=== PATIENT | female | born 1940 | race Caucasian/White ===

== ENCOUNTER 2022-01-12 15:23 | Observation (INO) | payer SELFPAY, OTHER ==
[2022-01-12] VITALS (15 sets, daily range): BP systolic 83–166; BP diastolic 41–93; PULSE 68–110; RESP 14–20; TEMP 35.7–36.3; O2SAT 91–99; BMI 37.8; BMI 38.4
[2022-01-12] MEDS: Lactated Ringers 1,000 ML 15 ML IV (09:13)
[2022-01-12 09:21] LABS: Bedside Glucose 153 mg/dL (74-106)
--- NOTE | 2022-01-12 09:50 | RAD_ITS ---
PROCEDURE: Spinal cord stimulator insertion. DATE OF EXAMINATION: 01/12/2022. INDICATION: Female, 81 years old. Chronic back pain. FLUOROSCOPY TIME (if supplied): (3 minutes and 48 seconds) minutes/seconds. 7 images were obtained. RAD/Lumbar Spine 2 or 3 Views IMPRESSION: Intraoperative images provided for spinal cord stimulator insertion. The tip appears to be at the T8 level. Electronically Signed: Jaisel Muñiz MD at 14:04 EDT ,
[2022-01-12] MEDS: Cefazolin 2 GM in 0.9% Normal Saline 100 ML IV (10:36)
[2022-01-12] MEDS: 0.9% Normal Saline (Pres. free 10 ML Vial (10:48)
[2022-01-12] MEDS: Lidocaine 2% (20 ml mdv) 20 ML Vial (10:48)
[2022-01-12] MEDS: Bacitracin 500 UNITS/GM PACKET (12:20)
[2022-01-12 12:46] LABS: Bedside Glucose 120 mg/dL (74-106)
--- NOTE | 2022-01-12 13:05 | OP.PCM_ITS ---
Report of Operation Date of Procedure: 01/12/22 Description of Surgical Findings:: Pre-Operative Diagnosis: Lumbosacral radiculopathy, lumbosacral degenerative disc disease, lumbosacral spinal stenosis Post-Operative Diagnosis: Lumbosacral radiculopathy, lumbosacral degenerative disc disease, lumbosacral spinal stenosis Surgery/Procedure Performed:: 1. Spinal cord stimulator thoracolumbar leads placement x2, 2- spinal cord stimulator Medtronic intellus generator placement #3 spinal cord stimulator generator pocket creation at the left gluteal region #4 spinal cord stimulator simple programming, 5-intraoperative fluoroscopic interpretation ANESTHESIA: MAC COMPLICATIONS: None BLOOD LOSS: <50 ml Implanted device: Spinal cord stimulator lead [id number] lot number [id number], lead #2 [id number] lot number [id number] Medtronic spinal cord stimulator generator intellus serial number [id number] PROCEDURE IN DETAIL: History and physical today was reviewed. Risks and benefits of procedure explained. The patient understood, agreed to procedure, informed consent was obtained. IV inserted per routine protocol. The patient was taken to the operating room, placed in the prone position with a pillow positioned underneath the abdomen. A 2 g of Ancef IV piggyback was infused per anesthesia. The lower back and left gluteal area was prepped and draped in a sterile fashion using iodine x3 Ioban was placed. The C-arm was brought in position for AP view at the L2-3 vertebral bodies under direct visualization fluoroscopy on a true AP view the L2-3 interlaminar space was identified skin and subcutaneous tissue and size approximately 10 cc of a mix of 2% lidocaine and 0.25% Marcaine using a 25-gauge regular needle followed by a 25-gauge 3-1/2 inch spinal needle towards the interlaminar space at L1-2, the skin and subcutaneous tissue were then anesthetized and using an 11-gauge blade was then taken down to the skin and subcutaneous tissue using a 14-gauge 3-1/2 inch Touhy needle provided by the [employer]way kit the needle was passed through the skin towards the interlaminar space at L1-2 and a paramedian approach the needle was then advanced under direct visualization fluoroscopy towards the interlaminar space at L1-2 [id number] technique was then carried to air towards the interlaminar space at L1-2 once the tip of the needle was in the epidural space and loss of resistance was encountered to air and after confirmation of AP as well as oblique view of the spinal cord stimulator lead was then advanced under direct visualization fluoroscopy to be at the tip of the lead at T8 and the bottom of the lead around mid T10 after confirmation of AP as well as lateral view to confirm correct placement of the lead in the posterior compartment of the epidural space the previous procedure was then repeated to the left the previous lead at L1-2 interlaminar space the second lead was then inserted under direct visualization with fluoroscopy to be at the mid T8 and mid T10 area the leads were were then connected to the external neurostimulator and patient was then awakened to confirm satisfactory coverage of the painful area once satisfactory coverage was then achieved the stylette of each needle was then removed and the skin and subcutaneous tissue on to the left of the paramedian needles was then taken anesthetized with a total of 10 cc of the previous mixture of 0.25% Marcaine and 2% lidocaine using a 25-gauge regular needle the incision was then taken down through the skin and subcutaneous tissue towards the fascia making sure hemostasis was then maintained via cautery, the spinal cord stimulator leads were then passed through the above incision and secured using the biwing and sutured down with a 2-0 silk to the fascia at that level the spinal cord stimulator leads were then tunneled via a tunneler provided by the [employer] kit towards the previously incised spinal cord stimulator battery at the left gluteal region skin and subcutaneous tissue were anesthetized with approximately 10 cc of a mix of 2% lidocaine and 0.25% Marcaine using a 25 gauge regular needle, skin and subcutaneous tissue was then taken down with the 11- gauge blade hemostasis was maintained with Bovie and direct pressure the incision was then taken down to the fascia and the battery was then secured with the 2-0 silk sutures that were the spinal cord stimulator leads the upper lead was then marked the new until spinal cord stimulator battery was then provided Via [employer]way kit the battery was then reattached of the spinal cord stimulator make ensure that the left is attached to the top position from 0-7 electrodes and the bottom from 8-15 electrodes once impedance was then checked to be in the proper average number the intellus battery was then inserted into the pocket and impedance with when checked again the pocket was then inspected to confirm hemostasis in place, the intellus battery was then secured to the fascia using a 2-0 silk to the upper eyes of the battery confirming an upward writing of the intellus facing posterior, once complete confirmation the battery was then p laced in the position and the the mid paramedian and the gluteal incisions were then closed primarily through a 3-0 Vicryl in a running fashion followed by a 4- 0 Monocryl to the skin, hemostasis was then maintained during the procedure the skin was then covered with a Steri-Strips and bacitracin patient was then returned into the supine position in a stable condition and returned to recovery in a stable condition patient experienced no signs or symptoms of intrathecal or intravascular injection patient experienced no paresthesia the procedure was completed without any apparent difficulty any complication the patient appeared to tolerate well, motor as well as sensory function was unchanged from prior to the procedure ASSESSMENT AND PLAN: This is an 81-year-old female with lumbosacral radiculopathy lumbosacral degenerative disc disease lumbosacral spinal stenosis status post 1. Spinal cord stimulator thoracolumbar leads placement x2 #2 spinal cord stimulator Medtronic intellus generator placement #3 spinal cord stimulator generator pocket creation at the left gluteal region #4 spinal cord stimulator simple programming, 5-intraoperative fluoroscopic interpretation patient will continue her current medications a prescription was provided to the patient Keflex 500 mg 1 p.o. every 8 hours for 7 days, Percocet 5-325 mg half to 1 p.o. every 6 hours for acute postoperative pain, postop instruction were given in writing to the patient and her daughter and as well as verbally and in writing, patient will follow approximately 1 week for reevaluation.
[2022-01-12 13:35] LABS: Bedside Glucose 206 mg/dL (74-106)
--- NOTE | 2022-01-12 14:47 | SUR.PHASEII ---
PATIENT SATURATION 80% ON ROOM AIR.THIS NURSE NOTIFIED DR. CHOPRA AND DR. ESTRADA. WILL CONT TO MONITOR. PLACED ON 4L O2.
--- NOTE | 2022-01-12 15:02 | RAD_ITS ---
STUDY: X-RAY CHEST REASON FOR EXAM: Female, 81 years old. SATURATION 80% RA; CONCERN FOR PE; POST PROCEDURE TECHNIQUE: Single AP portable view of the chest. COMPARISON: None. FINDINGS: Spinal cord similar device is seen with tip at the T7 level. Increased interstitial markings suggestive of a mild degree of CHF superimposed on scarring. Focal atelectasis at the right lung base. Normal size heart. Normal mediastinum and lata. Normal visualized pulmonary arteries. There is atherosclerotic calcification of the aortic arch with tortuosity. Normal visualized thoracic spine. There is degenerative osteoarthritis of the bilateral shoulders. There is no demonstrated abnormality of the visualized soft tissue structures of the upper abdomen. RAD/Chest 1 View (Portable) IMPRESSION: Findings suggestive of mild degree of CHF superimposed on chronic scarring. Electronically Signed: Jasiel Muñiz MD at 15:31 EDT ,
--- NOTE | 2022-01-12 15:20 | HP.PCM.HOS_ITS ---
HPI - General General Date of Admission: 01/12/22 Date of Service: 01/12/22 Chief Complaint: Hypoxia in PACU post-op HPI Narrative The patient is an 81 y/o F w/ PMHx: Chronic venous stasis disease, Chronic BL LE Lymphedema, Anxiety and Depression, Obesity, Chronic AF, Diabetes mellitus type II, HTN, HLD, Chronic back pain, Chronic CHF unclear type, RLS, Valvular Heart Disease s/p AVR who presents to the [facility] on 01/12/22 for planned spinal stimulator placement per Dr. Buck and following MAC anesthesia/procedure patient was noted to be hypoxia on room air attempts with improvement when she is awake but when she falls back asleep she is noted to become hypoxic. PACU evaluation included EKG w/ atrial fibrillation with no acute evidence of ischemia/rate controlled. Anesthesia noted lungs clear to ausculation but given history planne d lasix 20 mg IV x 1 with CXR pending. No labs were obtained. Family does note that patient does snore very loudly and gasps with likely underlying untreated ANABEL. They also note that she will frequently fall asleep in her chair during the day. In the PACU patient is aware and alert, 97% on 2 L nasal cannula. She does admit that she is very fatigued during the day routinely. She denies any recent increased swelling to her lower extremities and does have chronic lymphedema with chronic venous stasis skin changes. She denies any specific weight gain. Per discussion with PACU staff patient is eligible for resumption of her Eliquis in AM. REPLACED BY [facility] Medical History (Updated 01/12/22 @ 15:[address] Maryan Bennett MD) Anxiety Arthritis Back pain Chronic atrial fibrillation History of CHF (congestive heart failure) Hypertension Insulin dependent diabetes mellitus Non-smoker Obesity Restless legs Walker as ambulation aid Wears dentures Wears glasses Home Medications Barley Life 1 packet PO/SL DAILY 01/08/22 [History Last Taken Unknown] apixaban [Eliquis] 5 mg PO BID 01/08/22 [History Last Taken Unknown] ascorbic acid (vitamin C) [Vitamin C] 250 mg PO DAILY 01/08/22 [History Last Taken Unknown] atenolol 50 mg PO DAILY 01/08/22 [History Last Taken 01/12/22] furosemide [Lasix] 20 mg PO DAILY 01/08/22 [History Last Taken Unknown] insulin glargine [Basaglar KwikPen U-100 Insulin] 16 unit SUBCUT QPM 01/08/22 [History Last Taken Unknown] lisinopril 10 mg PO DAILY 01/08/22 [History Last Taken Unknown] nitroglycerin [Nitrostat] 0.4 mg SUBLINGUAL Q5M PRN 01/08/22 [History Last Taken Unknown] Allergy/AdvReac Type Severity Reaction Status Date / Time Penicillins Allergy Rash Verified 01/12/22 08:58 Family History (Updated 01/12/22 @ 15:[address] Maryan Bennett MD) Mother Cancer Unclear type. Father Heart disease Surgical History (Updated 01/12/22 @ 15:[address] Maryan Bennett MD) History of Hx of aortic valve replacement Hx of total knee arthroplasty Hx of umbilical hernia repair S/P insertion of spinal cord stimulator Social History (Updated 01/12/22 @ 15:[address] Maryan Bennett MD) household members: spouse Smoking Status: Never smoker alcohol intake: never substance use type: does not use ROS ROS Narrative Admission Review of Systems: CONSTITUTIONAL: No weight loss, fever, chills, + weakness or fatigue. HEENT: Eyes: No visual loss, blurred vision, double vision or yellow sclerae. Ears, Nose, Throat: No hearing loss, sneezing, congestion, runny nose or sore throat. SKIN: No rash or itching, lesions, wounds. CARDIOVASCULAR: No chest pain, chest pressure or chest discomfort, palpitations, edema, orthopnea, syncopal events. RESPIRATORY: + Shortness of breath/exertional chronically, hypoxia in PACU, family reported nighttime loud snoring and gasping, No cough or sputum, wheezing, hemoptysis. GASTROINTESTINAL: No anorexia, nausea, vomiting or diarrhea, abdominal pain, melena, BRBPR. GENITOURINARY: No dysuria, frequency, urgency or retention. NEUROLOGICAL: No headache, dizziness, syncope, paralysis, ataxia, numbness or tingling in the extremities, focal weakness, change in bowel or bladder control, seizure. MUSCULOSKELETAL: + muscle, back pain, joint pain or stiffness. HEMATOLOGIC: No anemia, bleeding or bruising. LYMPHATICS: No enlarged nodes. No history of splenectomy. PSYCHIATRIC: + history of anxiety. ENDOCRINOLOGIC: No reports of sweating, cold or heat intolerance. No polyuria or polydipsia. ALLERGIES: No history of asthma, hives, eczema or rhinitis. Vital Signs Vital Signs Vital Signs: 01/12/22 08:59 01/12/22 12:38 01/12/22 12:45 Temperature 96.3 F L 96.6 F L Temperature Source Temporal Temporal Pulse Rate 68 110 H 101 H Respiratory Rate 18 16 16 Respiratory Pattern Normal Normal Blood Pressure 145/70 H 166/49 H 112/47 L Blood Pressure Mean 95 88 68 Blood Pressure Source Monitor Monitor Blood Pressure Position Semi-Fowlers Supine Semi-Fowlers Blood Pressure Location Right Arm Right Arm Right Arm Baseline BP 145/70 145/70 Pulse Ox 95 93 97 Oxygen Delivery Method Room Air High Flow High Flow Oxygen Flow Rate (L/min) 6 6 01/12/22 13:00 01/12/22 13:15 01/12/22 13:35 Temperature 97.4 F L Temperature Source Temporal Pulse Rate 90 92 90 Respiratory Rate 16 16 16 Respiratory Pattern Blood Pressure 83/53 L 95/50 L 103/41 L Blood Pressure Mean 63 65 61 Blood Pressure Source Monitor Monitor Monitor Blood Pressure Position Semi-Fowlers Semi-Fowlers Semi-Fowlers Blood Pressure Location Right Arm Right Arm Right Arm Baseline BP 145/70 145/70 145/70 Pulse Ox 99 99 94 Oxygen Delivery Method High Flow High Flow Room Air Oxygen Flow Rate (L/min) 6 6 01/12/22 14:14 Temperature Temperature Source Pulse Rate 88 Respiratory Rate 14 Respiratory Pattern Normal Blood Pressure 89/61 L Blood Pressure Mean 70 Blood Pressure Source Monitor Blood Pressure Position Supine Blood Pressure Location Left Forearm Baseline BP 145/70 Pulse Ox 91 Oxygen Delivery Method Nasal Cannula Oxygen Flow Rate (L/min) 4 Weight Weight: 220 lb 10.923 oz Body Mass Index (BMI) 37.8 Physical Exam Narrative Physical Examination: General: Awake, alert, oriented to self, place and recent events, remains cooperative, seated upright in the PACU bed, conversive, no obvious distress, oxygen 97% on 2 L currently. Skin: Normal color, normal turgor, no icterus, no cyanosis except bilateral lower extremity chronic venous stasis skin changes as well as recent spinal cord stimulator placement with dressings in place with no drainage.. HEENT: AT/NC, EOMI, PERRLA, MMM, no carotid bruits or JVD noted; however, patient with significantly thickened neck which makes evaluation difficult. Lungs: Mildly diminished, greater bases, appropriate effort, no markedly noted rales, ronchi or wheezing. Heart: Irregular, rate controlled; no gallop, rub audible, + SM. Abdomen: Soft, obese, NTTP, no obvious distention but habitus makes evaluation difficult, distant normal BS, no obvious HSM; however, habitus makes evaluation difficult. Extremities: No cyanosis, no clubbing, bilateral lower extremity chronic venous stasis skin changes, no significant pitting edema, does have some chronic lymphedema Neurological: Patient awake, alert, oriented as noted, cognitive function intact; pupils equally reactive to light and accommodation, cranial nerves II- XII grossly normal, moving all 4 extremities, no focal deficits, strength moderately to severely limited given recent OR, improving. Psychiatric: Affect appears currently improved, normal, no acute evidence of depressive or anxiety feelings. Results Lab / Micro Data Labs: Laboratory Results - last 24 hr 01/12/22 08:57: POC Glucose 153 H 01/12/22 12:32: POC Glucose 120 H 01/12/22 13:09: POC Glucose 206 H Micro: Microbiology 01/12/22 08:45 Interface Orders SARS-CoV-2 Antigen (Rapid) - Final Radiology Impression Lumbar Spine X-Ray 01/12/22 09:50 IMPRESSION: Intraoperative images provided for spinal cord stimulator insertion. The tip appears to be at the T8 level. Electronically Signed: Jasiel Muñiz MD at 14:04 EDT , Assessment & Plan Assessment/Plan (1) Hypoxia: PLAN: The patient is an 81 y/o F w/ PMHx: Chronic venous stasis disease, Chronic BL LE Lymphedema, Anxiety and Depression, Obesity, Chronic AF, Diabetes mellitus type II, HTN, HLD, Chronic back pain, Chronic CHF unclear type, RLS, Valvular Heart Disease s/p AVR who presents to the [facility] on 01/12/22 for planned spinal stimulator placement per Dr. Buck and following MAC anesthesia/procedure patient was noted to be hypoxia on room air attempts with improvement when she is awake but when she falls back asleep she is noted to become hypoxic. #1. Recent spinal cord stimulator with chronic back pain with resulting postoperative hypoxia, possibly multifactorial, suspect underlying ANABEL, hypoventilation syndrome although may be complicated by mild acute CHF, unclear type: We will admit to PCU to be cautious, will maintain on oxygen supplementation with wean as tolerated to room air, requesting CBC, CMP, troponin series, BNP, chest x-ray, EKG in PACU with rate controlled atrial fibrillation, given underlying valvular heart disease we will also request echocardiogram, maintain on monitor, pending these further evaluations will be able to narrow patient's acute care, plan trending pulse ox overnight. Dr. Joe noted intention to follow his patient #2. Chronic CHF, unclear type: Echocardiogram requested given patient presentation although lower suspicion is primary etiology, unclear specific baseline, status post AVR which complicates presentation, will continue Eliquis in a.m. per clearance by patient pain management physician given recent OR, continue atenolol, lisinopril, Lasix with IV 20 mg x 1 dosed in PACU of note. #3. Valvular heart disease: Status post AVR, echocardiogram requested as noted. Certainly could be contributing to presentation number 1. #4. Diabetes mellitus type II: Will continue home insulin regimen, ADA diet, accu checks w/ ISS. #5. Chronic atrial fibrillation: We will continue patient home on atenolol, resume patient's Eliquis in a.m. per clearance per surgery Per discussion with PACU. #6. Hypertension: Continue home regimen including atenolol, lisinopril, Lasix with hold parameters as noted, IV Lasix 20 mg x 1 administered in PACU, PRN hydralazine. #7. Hyperlipidemia: Not on regimen, defer pending further evaluation #1. #8. Obesity: Weight loss and lifestyle changes encouraged. #9. DVT prophylaxis: SCDs, plan resumption of patient's home Eliquis in a.m. per clearance per Dr. Joe. #10. CODE status: Discussed CODE status at length including difference between FULL code, DNR-CCA and DNR-CC status. Following discussions about the differences in these status, requested Full Code status. Charges/Coding Visit Charges OBSV E&M: 85000 Initial observation care L3
--- NOTE | 2022-01-12 15:57 | SUR.PHASEII ---
patient moved to pacu for close monitoring at 1540. pure wick in place. family updated.
[2022-01-12] MEDS: Furosemide 20 MG/2 ML VIAL IV (16:07)
[2022-01-12 16:17] LABS: Troponin-I HS 29 pg/mL (3.0-54.0)
--- NOTE | 2022-01-12 16:37 | ECHOCS_ITS ---
Reason For Study: SOB Procedure This was a 2D Doppler, Color Flow transthoracic echocardiogram. The study was technically difficult. Exam performed portable in patient room. Left Ventricle Normal LV size. Mild concentric left ventricular hypertrophy. Left ventricular systolic function is normal. The estimated ejection fraction is 60 %. No regional wall motion abnormalities noted. Right Ventricle Normal RV size. Normal systolic function. Atria The left atrium is severely enlarged. Normal right atrium. Mitral Valve There is mild mitral annular calcification. Tricuspid Valve Normal tricuspid valve. Mild tricuspid valve insufficiency. Pulmonary artery systolic pressure is 38 mmHg. Aortic Valve Peak aortic valve gradient 26 mmHg. Mean aortic valve gradient 15 mmHg. Stable appearing bioprosthetic aortic valve apparatus. Pulmonic Valve Normal pulmonic valve. Great Vessels Normal aortic root. Pericardium/Pleural No pericardial effusion. Medication Diluted definity 2ml given slow IV push to enhance endocardial definition. MMode/2D Measurements & Calculations LVIDd: 3.8 cm IVSd: 1.3 cm LVOT diam: 2.0 cm LVIDs: 1.9 cm LVPWd: 1.2 cm RVDd: 3.6 cm FS: 49.1 % LVOT area: 3.1 cm2 Ao root diam: 3.3 cm LAV(MOD-bp): 128.4 ml LVAd ap4: 25.4 cm2 LAV(MOD-bp) Indexed: 62.7 ml/m2 LVLd ap4: 7.2 cm LAV(MOD-sp2): 104.6 ml EDV(MOD-sp4): 74.0 ml LAV(MOD-sp4): 139.9 ml EDV(sp4-el): 75.6 ml LVAs ap4: 12.3 cm2 LVLs ap4: 6.1 cm ESV(MOD-sp4): 20.7 ml ESV(sp4-el): 21.2 ml EF(MOD-sp4): 72.0 % EF(sp4-el): 72.0 % LVAd ap2: 25.4 cm2 SV(MOD-sp4): 53.2 ml SV(MOD-sp2): 49.9 ml LVLd ap2: 7.3 cm EDV(MOD-sp2): 72.0 ml EDV(sp2-el): 75.1 ml LVAs ap2: 12.9 cm2 LVLs ap2: 6.2 cm ESV(MOD-sp2): 22.1 ml ESV(sp2-el): 22.8 ml EF(MOD-sp2): 69.3 % SV(sp4-el): 54.5 ml LA dimension(2D): 3.7 cm LA A4 area: 35.5 cm2 RA A4 area: 21.0 cm2 Doppler Measurements & Calculations MV E max latisha: 136.0 cm/sec MV V2 max: 138.8 cm/sec MV P1/2t max latisha: 135.7 cm/sec MV max P.7 mmHg MV P1/2t: 77.7 msec MV V2 mean: 71.7 cm/sec MV mean P.7 mmHg MV dec slope: 511.7 cm/sec2 MV V2 VTI: 29.0 cm MVA(P1/2t): 2.8 cm2 MVA(VTI): 2.8 cm2 Ao V2 max: 257.5 cm/sec LV V1 max: 127.2 cm/sec SV(LVOT): 81.5 ml Ao max P.6 mmHg LV V1 max P.5 mmHg Ao V2 mean: 183.3 cm/sec LV V1 mean P.7 mmHg Ao mean P.0 mmHg LV V1 mean: 91.0 cm/sec Ao V2 VTI: 55.4 cm LV V1 VTI: 26.7 cm EDIN(I,D): 1.5 cm2 EDIN(V,D): 1.5 cm2 PA V2 max: 78.4 cm/sec TR max latisha: 290.2 cm/sec TR max P.9 mmHg ECHO/Echo Complete W/ Contrast Interpretation Summary Normal LV size. Mild concentric left ventricular hypertrophy. Left ventricular systolic function is normal. The estimated ejection fraction is 60 %. The left atrium is severely enlarged. Pulmonary artery systolic pressure is 38 mmHg. Mean aortic valve gradient 15 mmHg. Stable appearing bioprosthetic aortic valve apparatus. Ordering Physician: Maryan Bennett Referring Physician: Heath Madden Performed By: Maryuri Ferris RDCS
[2022-01-12 17:33] LABS: Absolute Lymphocyte Count 0.77 X10^3/uL (0.83-4.51); Absolute Neutrophil Count 6.4 X10^3/uL (2.0-7.7); Basophil# 0.01 X10^3/uL; Basophil% 0.1 % (0-1); Eosinophil# 0.03 X10^3/uL; Eosinophils% 0.4 % (0-5); Hematocrit 45.1 % (37-47); Hemoglobin 14.3 g/dL (12.0-15.0); Lymphocyte # 0.77 X10^3/ul (0.83-4.51); Lymphocyte % 9.8 % (19-41); Mean Corp Hgb Conc 31.7 g/dL (32-36); Mean Corpuscular Hgb 32.3 pg (27.0-32.0); Mean Corpuscular Volume 101.8 fL (81-99); Mean Platelet Vol. 11.4 fl (6.2-12.0); Monocyte# 0.66 X10^3/uL; Monocyte% 8.4 % (0-10); NRBC Flagged by Analyzer 0 % (0-5); Neutrophil # 6.35 X10^3/uL (2.7-7.7); Platelet Count 156 K/mm3 (150-450); RBC Distribution Width CV 13.5 % (11.6-14.6); RBC Distribution Width SD 51.4 fl (35.1-43.9); Red Blood Count 4.43 M/mm3 (4.2-5.4); White Blood Count 7.8 K/mm3 (4.4-11.0)
[2022-01-12] MEDS: Acetaminophen 325 MG Tablet 650 MG PO (17:39)
[2022-01-12] MEDS: Insulin Lispro 100 UNIT/ML INSULN.PEN SC ×2 (17:39→22:43)
[2022-01-12 17:41] LABS: Bedside Glucose 208 mg/dL (74-106)
[2022-01-12 17:59] LABS: ALB/GLOB Ratio 0.9 RATIO (0.9-2.4); AST(SGOT) 37 U/L (15-37); Alanine Aminotransfer ALT/SGPT 39 U/L (13-56); Albumin, Serum 3.4 g/dL (3.2-5.0); Alkaline Phosphatase 79 U/L (45-117); Anion Gap 4 (5-15); BUN 21 mg/dL (7-18); BUN/Creat Ratio 23.8 RATIO (10-20); Calcium,Total 8.7 mg/dL (8.5-10.1); Chloride 106 mmol/L (98-107); Creatinine, Serum 0.88 mg/dL (0.55-1.02); EST Glomerular Filtration Rate 66 mL/min (>60); Est Glom Filt Rate - Afr Amer 79 mL/min (>60); Estimated Creatinine Clearance 44.03 ml/min; Globulin 3.9 g/dL (2.2-4.2); Glucose 208 mg/dL (74-106); Magnesium 1.8 mg/dL (1.6-2.6); Potassium 4.8 mmol/L (3.5-5.1); Protein, Total 7.3 g/dL (6.4-8.2); Sodium Level 139 mmol/L (136-145); Troponin-I HS 40 pg/mL (3.0-54.0)
[2022-01-12 18:27] LABS: BNP,B-Type NATRIURETIC PEPTIDE 178.4 pg/mL (0-100)
--- NOTE | 2022-01-12 18:55 | NURSING ---
Reviewed charting with Leighton Timmons RN
[2022-01-12] MEDS: Insulin Glargine-YFGN 100 UNIT/ML Pen 16 UNIT SC (22:43)
[2022-01-12] MEDS: Cephalexin 500 MG Capsule PO (22:51)
[2022-01-12 23:01] LABS: Bedside Glucose 250 mg/dL (74-106)
[2022-01-12 23:01] LABS: Troponin-I HS 41 pg/mL (3.0-54.0)
--- NOTE | 2022-01-12 23:44 | CPS ---
2234 RN woke pt for pills, pt still on room air for overnight trend continuous pulse oximetry RT frequently checking pt, spo2 84-88% on room air. drops then quickly comes back up. Recently spo2 was 85% for few minutes, then 88% again. Nasal O2 will be applied at 2355 at 2L
[2022-01-13] VITALS (8 sets, daily range): BP systolic 109–120; BP diastolic 50–62; PULSE 66–96; RESP 18; TEMP 36.6–36.8; O2SAT 85–98
[2022-01-13] MEDS: Acetaminophen 325 MG Tablet 650 MG PO (02:47)
[2022-01-13] MEDS: Cephalexin 500 MG Capsule PO (05:34)
--- NOTE | 2022-01-13 05:37 | NURSING ---
received report from oh Rubalcava, pt a&o x3 states pain is improving, O2 decreased to 1L nc, water and am meds given to pt, denies needs, call light within reach
[2022-01-13 05:40] LABS: Absolute Lymphocyte Count 1.25 X10^3/uL (0.83-4.51); Absolute Neutrophil Count 3.1 X10^3/uL (2.0-7.7); Basophil# 0.01 X10^3/uL; Basophil% 0.2 % (0-1); Eosinophil# 0.06 X10^3/uL; Eosinophils% 1.2 % (0-5); Hematocrit 40.7 % (37-47); Hemoglobin 12.9 g/dL (12.0-15.0); Lymphocyte # 1.25 X10^3/ul (0.83-4.51); Lymphocyte % 24.2 % (19-41); Mean Corp Hgb Conc 31.7 g/dL (32-36); Mean Corpuscular Hgb 31.9 pg (27.0-32.0); Mean Corpuscular Volume 100.5 fL (81-99); Mean Platelet Vol. 11.7 fl (6.2-12.0); Monocyte# 0.74 X10^3/uL; Monocyte% 14.3 % (0-10); NRBC Flagged by Analyzer 0 % (0-5); Neutrophil # 3.09 X10^3/uL (2.7-7.7); Neutrophil % 59.9 % (47-70); Platelet Count 158 K/mm3 (150-450); RBC Distribution Width CV 13.6 % (11.6-14.6); RBC Distribution Width SD 50.7 fl (35.1-43.9); Red Blood Count 4.05 M/mm3 (4.2-5.4); White Blood Count 5.2 K/mm3 (4.4-11.0)
--- NOTE | 2022-01-13 05:55 | EKG12_ITS ---
Test Reason : AM EKG Blood Pressure : / mmHG Vent. Rate : 080 BPM Atrial Rate : 085 BPM P-R Int : 000 ms QRS Dur : 134 ms QT Int : 424 ms P-R-T Axes : 000 131 052 degrees QTc Int : 489 ms Atrial fibrillation Right bundle branch block Abnormal ECG No previous ECGs available Confirmed by ANTONIO SANTIAGO, BRITNEY ([id number]), food expeditor DRAKE ANDRADE ([id number]) on 01/14/2022 9:51:59 AM Referred By: Maryan Bennett Confirmed By:BRITNEY ALVAREZ MD
[2022-01-13 06:17] LABS: ALB/GLOB Ratio 0.9 RATIO (0.9-2.4); AST(SGOT) 29 U/L (15-37); Alanine Aminotransfer ALT/SGPT 29 U/L (13-56); Albumin, Serum 2.9 g/dL (3.2-5.0); Alkaline Phosphatase 65 U/L (45-117); Anion Gap 5 (5-15); BUN 24 mg/dL (7-18); BUN/Creat Ratio 27.7 RATIO (10-20); Calcium,Total 8.6 mg/dL (8.5-10.1); Chloride 106 mmol/L (98-107); Creatinine, Serum 0.86 mg/dL (0.55-1.02); EST Glomerular Filtration Rate 67 mL/min (>60); Est Glom Filt Rate - Afr Amer 81 mL/min (>60); Estimated Creatinine Clearance 45.05 ml/min; Globulin 3.4 g/dL (2.2-4.2); Glucose 149 mg/dL (74-106); Potassium 4.5 mmol/L (3.5-5.1); Protein, Total 6.3 g/dL (6.4-8.2); Sodium Level 138 mmol/L (136-145); Thyroid Stim Hormone (TSH) 0.67 uIU/mL (0.358-3.74)
[2022-01-13] MEDS: oxyCODONE 5 MG Tablet PO ×2 (06:19→12:48)
[2022-01-13 06:25] LABS: Bedside Glucose 113 mg/dL (74-106)
[2022-01-13] MEDS: APIXABAN 5 MG TABLET PO (10:14)
[2022-01-13] MEDS: Furosemide 20 MG Tablet PO (10:14)
[2022-01-13] MEDS: Atenolol 50 MG Tablet PO (10:14)
[2022-01-13] MEDS: Insulin Lispro 100 UNIT/ML INSULN.PEN SC (11:27)
[2022-01-13 11:36] LABS: Bedside Glucose 243 mg/dL (74-106)
--- NOTE | 2022-01-13 11:53 | PCM.DC.SUM ---
Providers Primary Care Physician: Dr. Heath Madden MD Consultations 01/12/22 16:37 Consult: Pain Management Routine Consulting Provider: Chauncey Buck Reason for Consult: spinal stimulator placed EMERGENT Consult: No MD Notified: Yes Date Notified: 01/12/22 Time Notified: 15:51 Method of Notification: PACU noted he will follow Reason For Visit: INS SPINAL CORD STIM PERMANENT X 2 LEADS Diagnosis Discharge Diagnosis (1) Hypoxia: Status: Acute Code(s): R09.02 - Hypoxemia Medications at Discharge Home Medications Barley Life 1 packet PO/SL DAILY 01/08/22 Basaglar KwikPen U-100 Insulin 22 unit SUBCUT QPM 01/08/22 Eliquis 5 mg PO BID 01/08/22 ascorbic acid (vitamin C) [Vitamin C] 1,000 mg PO DAILY 01/08/22 atenolol 25 mg PO BID 01/08/22 furosemide [Lasix] 20 mg PO DAILY 01/08/22 lisinopril 10 mg PO DAILY 01/08/22 nitroglycerin [Nitrostat] 0.4 mg SUBLINGUAL Q5M PRN 01/08/22 ezetimibe 10 mg PO DAILY 01/12/22 Hospital Course Operations None Procedures 2-D Echocardiogram Summary of Care Provided Minutes Spent on Discharge: 45 Hospital Course: Patient is an 19-year-old female with a past medical history as outlined was admitted on 01/12/2022 after she had planned spinal stimulator placement. Pain management. After the procedure she was found to be hypoxic on room air despite attempts with improvement. She was also noted to become hypoxic when she fell asleep. EKG showed atrial fibrillation. Family noted the patient had a history of snoring and apneic episodes while sleeping and also frequently fell asleep during the day. She was admitted and managed for hypoxia postprocedure which was thought to be likely due to undiagnosed sleep apnea. Patient required 2 L of oxygen. She subsequently felt much better. She had a walking pulse ox which showed that she did require 2 L of oxygen. BNP was 173 and 2D echo done showed EF of 60% with mild concentric left ventricular hypertrophy and left ventricular systolic function which was normal. Left atrium was severely enlarged and pulmonary artery systolic pressure was 38 mmHg. She remained stable and was discharged home on 01/13/2022 on 2 L of oxygen. She was counseled that she would need follow-up with pulmonology on outpatient basis for formal sleep studies to get a diagnosis of sleep apnea. Patient seen and examined prior to discharge. She felt better and had no active complaints. Review of systems otherwise negative. Labs and vitals reviewed. Home medication reviewed and reconciled. Physical Exam Const alert, oriented x3 and no apparent distress General Appearance: cooperative, comfortable and well kempt Orientation / Consciousness: awake Exam Limitations: no limitations HEENT normocephalic, head/scalp atraumatic, hearing grossly normal bilaterally and moist oral mucous membranes Eyes PERRL, EOMs intact bilaterally and conjunctivae normal Neck no lymphadenopathy, supple and no JVD Resp Resp Narrative: mildly diminished breath sounds bibasally, no wheezes or crackles. On 2L of oxygen by nasal canula Cardio regular rate, regular rhythm, S1 normal heart sound, S2 normal heart sound and no murmurs GI normal to inspection, nondistended, normoactive bowel sounds, soft to palpation, non-tender and non-distended Extremity normal to inspection, full ROM and no clubbing, cyanosis or edema Skin no rashes or lesions noted, no wounds and skin turgor normal Neuro oriented x3, CN's II-XII intact bilaterally and moves all extremities Sensorium / Orientation: awake and alert Psych affect normal Weight / BMI Weight Weight: 223 lb 1.725 oz Body Mass Index (BMI) 38.4 ABG / Lab / Microbiology Data Result Diagrams: 01/13/22 04:44 01/13/22 04:44 Laboratory: Laboratory Results - last 24 hr 01/12/22 12:32: POC Glucose 120 H 01/12/22 13:09: POC Glucose 206 H 01/12/22 15:45: Troponin I High Sens 29 01/12/22 17:20: WBC 7.8, RBC 4.43, Hgb 14.3, Hct 45.1, MCV 101.8 H, MCH 32.3 H, MCHC 31.7 L, RDW Std Deviation 51.4 H, RDW Coeff of Masood 13.5, Plt Count 156, MPV 11.4, Immature Gran % (Auto) 0.300, Neut % (Auto) 81.0 H, Lymph % (Auto) 9.8 L, Dawson % (Auto) 8.4, Eos % (Auto) 0.4, Baso % (Auto) 0.1, Absolute Neuts (auto) 6.4, Absolute Lymphs (auto) 0.77 L, Nucleated RBC % 0 01/12/22 17:20: Sodium 139, Potassium 4.8, Chloride 106, Carbon Dioxide 29.0, Anion Gap 4 L, BUN 21 H, Creatinine 0.88, Estim Creat Clear Calc 44.03, Est GFR (MDRD) Af Amer 79, Est GFR (MDRD) Non-Af 66, BUN/Creatinine Ratio 23.8 H, Glucose 208 H, Calcium 8.7, Magnesium 1.8, Total Bilirubin 0.40, AST 37, ALT 39, Alkaline Phosphatase 79, Troponin I High Sens 40, Total Protein 7.3, Albumin 3.4, Globulin 3.9, Albumin/Globulin Ratio 0.9 01/12/22 17:20: B-Natriuretic Peptide 178.4 H 01/12/22 17:34: POC Glucose 208 H 01/12/22 22:09: Troponin I High Sens 41 01/12/22 22:42: POC Glucose 250 H 01/13/22 04:44: WBC 5.2, RBC 4.05 L, Hgb 12.9, Hct 40.7, MCV 100.5 H, MCH 31.9, MCHC 31.7 L, RDW Std Deviation 50.7 H, RDW Coeff of Masood 13.6, Plt Count 158, MPV 11.7, Immature Gran % (Auto) 0.200, Neut % (Auto) 59.9, Lymph % (Auto) 24.2, Dawson % (Auto) 14.3 H, Eos % (Auto) 1.2, Baso % (Auto) 0.2, Absolute Neuts (auto) 3.1, Absolute Lymphs (auto) 1.25, Nucleated RBC % 0 01/13/22 04:44: Sodium 138, Potassium 4.5, Chloride 106, Carbon Dioxide 27.0, Anion Gap 5, BUN 24 H, Creatinine 0.86, Estim Creat Clear Calc 45.05, Est GFR (MDRD) Af Amer 81, Est GFR (MDRD) Non-Af 67, BUN/Creatinine Ratio 27.7 H, Glucose 149 H, Calcium 8.6, Total Bilirubin 0.60, AST 29, ALT 29, Alkaline Phosphatase 65, Total Protein 6.3 L, Albumin 2.9 L, Globulin 3.4, Albumin/Globulin Ratio 0.9, TSH 0.67 01/13/22 06:23: POC Glucose 113 H 01/13/22 11:25: POC Glucose 243 H Microbiology: Microbiology 01/12/22 08:45 Interface Orders SARS-CoV-2 Antigen (Rapid) - Final Radiography Diagnostic Testing: Radiology Impression Lumbar Spine X-Ray 01/12/22 09:50 IMPRESSION: Intraoperative images provided for spinal cord stimulator insertion. The tip appears to be at the T8 level. Electronically Signed: Jasiel Muñiz MD at 14:04 EDT , Chest X-Ray 01/12/22 15:02 IMPRESSION: Findings suggestive of mild degree of CHF superimposed on chronic scarring. Electronically Signed: Jasiel Muñiz MD at 15:31 EDT , D/C Instructions Discharge Diet: Low fat / Low cholesterol Discharge Activity: Return to Normal Activity Call your doctor if you observe: Fever of 101 or Higher, Shortness of breath, Dizziness, Swelling in the ankles and Chest pain Meaningful Use Info Meaningful Use Diagnoses (Choose all that apply): None applicable Discharge Plan Admission Primary Reason for Your Visit: hypoxia Attending Provider: Fatuma Crawford Primary Care Provider: Heath Madden Consulting Providers: Chauncey Buck ; Maryan Bennett Instructions Patient Instructions: After Surgery for Sleep Apnea Additional Instructions / Restrictions: use oxygen 2L for shortness of breath as needed Discharge Orders/Prescriptions Prescriptions: Continued ascorbic acid (vitamin C) [Vitamin C] 250 mg Tablet 1,000 mg PO DAILY RF: 0 lisinopril 10 mg Tablet 10 mg PO DAILY RF: 0 nitroglycerin [Nitrostat] 0.4 mg Tablet, Sublingual 0.4 mg SUBLINGUAL Q5M PRN (Reason: CP) RF: 0 furosemide [Lasix] 20 mg Tablet 20 mg PO DAILY RF: 0 atenolol 50 mg Tablet 25 mg PO BID RF: 0 Basaglar KwikPen U-100 Insulin 100 unit/mL (3 mL) Insulin Pen 22 unit SUBCUT QPM RF: 0 Eliquis 5 mg Tablet 5 mg PO BID RF: 0 Barley Life 1 packet PO/SL DAILY RF: 0 ezetimibe 10 mg tablet 10 mg PO DAILY RF: 0 Referrals / Follow Up: Heath Madden MD [Primary Care Provider] - Within 2 Weeks Disposition Disposition (needs filled in before D/C Order can be placed): Home, Self Care Charges/Coding Visit Charges OBSV E&M: 45185 Observation care discharge
--- NOTE | 2022-01-13 12:35 | CASEMGMT ---
Addendum entered by Opal Nava 01/13/22 12:50: Pt provided a [facility] pulse ox for discharge. Nik MONTALVO CM Original Note: Pt qualifies for 2L at rest and 3L w/ exertion at discharge. This [employer] to room and pt/family state no preference for [employer]. Referral faxed to [facility] [place]. Pt/family state no further concerns/needs with pt going home at time of discharge. Nik MONTALVO CM
== END 2022-01-13 11:52 | disposition home or self-care (01) ==
LOC: PCU 16:43
PROVIDERS: Anesthesiology Pain Medicine; Admitting Provider Student in an Organized Health Care Education/Training Program; PCP Family Medicine; Referring Provider Family Medicine; Visit Provider Student in an Organized Health Care Education/Training Program
PROC: (CPT 63685; principal; 2022-01-12 09:35)
DX: R09.02 Hypoxemia (principal); I11.0 Hypertensive heart disease with heart failure; I50.9 Heart failure, unspecified; I48.91 Unspecified atrial fibrillation; E11.9 Type 2 diabetes mellitus without complications; Z79.4 Long term (current) use of insulin; F41.9 Anxiety disorder, unspecified; M48.07 Spinal stenosis, lumbosacral region; I89.0 Lymphedema, not elsewhere classified; E78.5 Hyperlipidemia, unspecified; M51.17 Intervertebral disc disorders with radiculopathy, lumbosacral region; Z79.899 Other long term (current) drug therapy; E66.9 Obesity, unspecified; Z68.35 Body mass index [BMI] 35.0-35.9, adult; Z79.01 Long term (current) use of anticoagulants
CPT/HCPCS: 63685; 63650; 00300; 36415; 71045; 72100; 76000; 80053; 82962; 83735; 83880; 84443; 84484; 85025; 87426; 93005; 93306; 94762; 99218; 99251; C1778; C1820; J7120; Q9957; A4216; C8929; G0378; G0463; J1940; J2405; J3490

== ENCOUNTER → 2023-01-08 | Outpatient (CLI) | payer OTHER, SELFPAY ==
--- NOTE | 2023-01-08 11:00 | RAD_ITS ---
HISTORY: SHOULDER PAIN. TECHNIQUE: XR Shoulder Min 2 Views. COMPARISON: None. FINDINGS: BONES : No acute fracture identified. Generalized osteopenia. JOINTS: No dislocation. Moderate degenerative changes with prominent osteophytes. 2 cm subacromial ossification. SOFT TISSUES: Thoracic spinal electrode noted. Chronic appearing interstitial opacities in the left lung. RAD/Shoulder min 2 Views IMPRESSION: No acute fracture or dislocation identified . Moderate osteoarthritis of the left shoulder. Probable calcific tendinitis. Electronically Signed: Marian Schulte MD at 10:12 EDT ,
== END | disposition home or self-care (01) ==
PROVIDERS: PCP Family Medicine; Referring Provider Nurse Practitioner Acute Care; Visit Provider Nurse Practitioner Acute Care
DX: M19.012 Primary osteoarthritis, left shoulder (principal)
CPT/HCPCS: 73030